=== PATIENT | female | born 1980 | race Native Hawaiian/Other Pacific Islander ===

== ENCOUNTER 2021-08-26 07:46 | Outpatient (CLI) | payer BC ==
[2021-08-26 08:07] LABS: PLATELET COUNT 267 K/uL (152-353)
[2021-08-26 08:44] LABS: POTASSIUM 3.7 mmol/L (3.6-5.2)
== END 2021-08-26 19:39 | disposition home or self-care (01) ==
LOC: LABW 07:46
PROVIDERS: ATTEND Nurse Practitioner Family
DX: Z00.00 Encounter for general adult medical examination without abnormal findings (principal); N93.8 Other specified abnormal uterine and vaginal bleeding; R53.83 Other fatigue; Z13.220 Encounter for screening for lipoid disorders
CPT/HCPCS: 36415; 80053; 80061; 82670; 83001; 83002; 83036; 84402; 84403; 84436; 84439; 84443; 84479; 85027

== ENCOUNTER 2022-03-24 07:41 | Outpatient (CLI) | payer BC | END 2022-03-24 19:13 | disposition home or self-care (01) | LOC: US 07:41 | PROVIDERS: ATTEND Internal Medicine | DX: R10.11 Right upper quadrant pain (principal) ==

== ENCOUNTER 2022-04-01 07:56 | Outpatient (CLI) | payer BC | END 2022-04-01 23:56 | disposition home or self-care (01) | LOC: NM 07:56 | PROVIDERS: ATTEND Internal Medicine | DX: K80.20 Calculus of gallbladder without cholecystitis without obstruction (principal) | CPT/HCPCS: A9537 ==

== ENCOUNTER 2022-08-21 10:31 | Outpatient (CLI) | payer BC | END 2022-08-21 19:42 | disposition home or self-care (01) | LOC: MAMMO 10:31 | PROVIDERS: ATTEND Obstetrics & Gynecology | DX: Z12.31 Encounter for screening mammogram for malignant neoplasm of breast (principal) ==